=== PATIENT | male | born 1995 | race Hispanic/Latino ===

== ENCOUNTER 2017-02-06 13:57 | Emergency (ER) | payer SELFPAY ==
[2017-02-06 14:25] LABS: #Eosinphils 0.1 thou/uL (0.0-0.7); #Neutrophils 7.7 thou/uL (1.40-6.50); %Basophils 0.3 % (0.0-1.0); %Eosinophils 0.5 % (0.0-10.0); %Lymphocytes 18.8 % (21.0-51.0); %Monocytes 9.4 % (0.0-10.0); Hematocrit 51.4 % (42.0-52.0); Mean Platelet Volume 8.4 fL (7.4-10.4); Red Blood Cell (RBC) Count 5.47 mill/uL (4.70-6.10); White Blood Cell (WBC) Count 10.9 thou/uL (4.8-10.8)
[2017-02-06 14:46] LABS: ALT (SGPT) 21 U/L (8-55); AST (SGOT) 19 U/L (5-34); Alkaline Phosphatase 86 U/L (40-150); Anion Gap 12 mmol/L (10-20); BUN (Urea Nitrogen) 16 mg/dL (8.9-20.6); Calc. Creatinine Clearance 0 mL/min (70-130); Calcium 9.9 mg/dL (7.8-10.44); Carbon Dioxide 23 mmol/L (22-29); Chloride 109 mmol/L (98-107); Estimated GFR-MDRD 90; Globulin 3.2 g/dL (2.4-3.5); Protein, Total 8.1 g/dL (6.0-8.3)
--- NOTE | 2017-02-06 15:00 | RAD ---
RIGHT HIP TWO VIEWS: History: Patient fell from approximately 10 feet in height. Right hip pain. Comparison: None. FINDINGS: Contour of the femoral head is maintained. The joint space is preserved. No fracture. IMPRESSION: No fracture. POS: [facility]
--- NOTE | 2017-02-06 15:00 | RAD ---
ONE VIEW CHEST: History: Left sided chest pain. Comparison: None. FINDINGS: Portable upright chest. Normal cardiac silhouette. The pulmonary vessels and hilum are normal. Costo phrenic angles are clear. No masses. No consolidation. No pneumothorax or osseous abnormalities. IMPRESSION: No acute cardiopulmonary process. POS: [facility]
[2017-02-06 15:03] LABS: Bilirubin Negative (Negative); Blood, Urine Negative (Negative); Glucose, Urine (Dipstick) Negative (Negative); Ketone, Urine 40 mg/dL (Negative); Nitrite Negative (Negative); Protein, Urine (Dipstick) 30 mg/dL (Neg-Trace)
[2017-02-06 15:08] LABS: Bacteria/HPF None Seen HPF (None Seen); Hyaline Casts/LPF 0-3 HYALINE CAST LPF (0-3 Hyaline); RBC/HPF 0-3 HPF (0-3); Squamous Epithelial None Seen HPF (0-3); WBC/HPF 0-3 HPF (0-3)
[2017-02-06] MEDS ORDERED: Morphine Sulfate 2 MG/ML SYRINGE ONE (15:35)
--- NOTE | 2017-02-06 15:52 | RAD ---
RIGHT FEMUR TWO VIEWS: History: Pain. Patient fell out of a tree. Comparison: None. FINDINGS: No fracture. No cortical irregularity or periosteal reaction. IMPRESSION: No post-traumatic change. POS: [facility]
--- NOTE | 2017-02-06 15:53 | RAD ---
FOUR VIEWS LEFT KNEE: Date: 02-06-17 History: Patient fell out of a tree while trimming a tree. Patient has left hip and left knee pain. FINDINGS/IMPRESSION: There is no evidence of a fracture, dislocation, or other osseous abnormality involving the left kne e. The lateral view is held in extension. POS: [facility]
--- NOTE | 2017-02-06 15:54 | RAD ---
AP PELVIS: Date: 02-06-17 History: 12 ft fall out of a tree. Patient fell on right side. Pain in right knee and hip. Low back soreness. Comparison: None. FINDINGS: There is no fracture, dislocation, or other osseous abnormality seen. IMPRESSION: No acute osseous abnormality seen involving the pelvis. POS: [facility]
--- NOTE | 2017-02-06 16:11 | RAD ---
LUMBAR SPINE THREE VIEWS: History: Fall from tree with back pain. FINDINGS: Lumbar vertebrae maintain normal height and alignment. There is no evidence of acute compression fra cture or injury. No evidence of spondylolisthesis. The disc spaces are normally maintained. IMPRESSION: Unremarkable lumbar spine. POS: [facility]
--- NOTE | 2017-02-06 16:44 | RAD ---
FOUR VIEWS RIGHT KNEE: History: Fall from a tree approximately 10 ft. Comparison: None. FINDINGS: No joint effusion. No fracture. No cortical irregularity or malalignment. Joint spaces are preserved . IMPRESSION: No post traumatic sequellae. POS: [facility]
[2017-02-06] MEDS ORDERED: HYDROcodone/Acetaminophen 5/325 mg Tablet ONE (16:55)
== END 2017-02-06 17:46 | disposition home or self-care (01) ==
LOC: ERS 13:57
DX: M25.551 Pain in right hip (principal); W14.XXXA Fall from tree, initial encounter
CPT/HCPCS: 71010; 72100; 72170; 80053; 81003; 81015; 85025; 96361; 96374; 96376; J2270

== ENCOUNTER 2017-07-13 18:14 | Emergency (ER) | payer SELFPAY ==
[2017-07-13] MEDS ORDERED: Adacel (T-DAP) 0.5 ML VIAL ONE (18:43)
== END 2017-07-13 19:15 | disposition home or self-care (01) ==
LOC: ERS 18:14
DX: S61.412A Laceration without foreign body of left hand, initial encounter (principal); W22.09XA Striking against other stationary object, initial encounter
CPT/HCPCS: 90471; 90715

== ENCOUNTER 2019-07-22 03:33 | Emergency (ER) | payer SELFPAY | END 2019-07-22 03:46 | LOC: ERS 03:33 | DX: Z02.89 Encounter for other administrative examinations (principal) | CPT/HCPCS: 99283 ==

== ENCOUNTER 2022-06-14 18:47 | Emergency (ER) | payer SELFPAY ==
[2022-06-14 20:04] LABS: Acetaminophen Less than 10.0 mcg/mL (10.0-30.0); Alcohol Less than 10 mg/dL (Less than 10); Salicylate Less than 8.0 mg/dL (15.0-30.0)
[2022-06-14 20:05] LABS: ALT (SGPT) 7 U/L (8-55); AST (SGOT) 13 U/L (5-34); Albumin 3.9 g/dL (3.5-5.0); Alkaline Phosphatase 69 U/L (40-110); Anion Gap 13 mmol/L (10-20); BUN (Urea Nitrogen) 19 mg/dL (8.9-20.6); Bilirubin, Total 0.6 mg/dL (0.2-1.2); Calc. Creatinine Clearance 0 mL/min (70-130); Calcium 8.6 mg/dL (7.8-10.44); Carbon Dioxide 24 mmol/L (22-29); Chloride 104 mmol/L (98-107); Estimated GFR 113; Globulin 2.6 g/dL (2.4-3.5); Glucose 106 mg/dL (70-105); Potassium 3.6 mmol/L (3.5-5.1); Protein, Total 6.5 g/dL (6.0-8.3); Sodium 137 mmol/L (136-145)
== END 2022-06-14 20:44 ==
LOC: ERS 18:47
DX: S00.93XA Contusion of unspecified part of head, initial encounter (principal); W22.8XXA Striking against or struck by other objects, initial encounter
CPT/HCPCS: 36415; 70450; 80053; 80307